=== PATIENT | male | born 1970 | race Caucasian/White ===

== ENCOUNTER 2020-08-14 09:59 | Emergency (ER) | payer MEDICAID ==
[~2020-08-14] VITALS: Ht 182.9 cm; Wt 96.1 kg
--- NOTE | 2020-08-14 10:12 | NUR ---
PATIENT WALKED BACK FROM TRIAGE WITH CHIEF C/O "I THINK I HAVE COVID." PER PATIENT HE STARTED HAVING FEVER AND CHILLS TUESDAY NIGHT WITH FEVERS HIGH "103." PATIENT REPORTS SALAZAR X4 WEEKS, PATIENT DENIES COUGH, SOB, SORE THROAT. PATIENT DENIES V/D, DOES REPORT SOME NAUSEA. 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 CALL LIGHT WITHIN REACH. Addendum: 08/14/20 at 1028 by [email or web address] PATIENT DENIES ANY KNOWN COVID EXPOSURES.
--- NOTE | 2020-08-14 10:27 | NUR ---
ERMD AT BEDSIDE FOR EVALUATION.
--- NOTE | 2020-08-14 11:05 | NUR ---
X-RAY AT BEDSIDE.
[2020-08-14 11:59] VITALS: BP 129/86
--- NOTE | 2020-08-14 12:10 | NUR ---
Patient given discharge instructions and they have confirmed that they understand the instructions. ERMD at bedside to answer questions. Patient stable and ambulatory with steady gait from ED to private vehicle.
== END 2020-08-14 12:11 | disposition home or self-care (01) ==
LOC: ED 11:19
DX: R50.9 Fever, unspecified (principal); Z20.822 Contact with and (suspected) exposure to COVID-19; R06.02 Shortness of breath; R05 Cough; R51.9 Headache, unspecified; R11.0 Nausea; F17.200 Nicotine dependence, unspecified, uncomplicated
CPT/HCPCS: 71045; 87635; 99284